=== PATIENT | female | born 1980 | race Caucasian/White ===

== ENCOUNTER 2017-05-06 15:18 | Emergency (ER) | payer OTHER ==
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
[2017-05-06 17:25] VITALS: BP 97/76
== END 2017-05-06 17:25 | disposition home or self-care (01) ==
LOC: ER 15:18
DX: S16.1XXA Strain of muscle, fascia and tendon at neck level, initial encounter (principal); S51.812A Laceration without foreign body of left forearm, initial encounter; V43.52XA Car driver injured in collision with other type car in traffic accident, initial encounter
CPT/HCPCS: 72050; 99283

== ENCOUNTER 2017-05-25 | Emergency (ER) | payer OTHER ==
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
== END 2017-05-25 15:39 | disposition home or self-care (01) ==
CPT/HCPCS: 99283